=== PATIENT | female | born 1995 | race Two or more races ===

== ENCOUNTER 2021-08-27 12:54 | Emergency (ER) | payer OTHER ==
[~2021-08-27] VITALS: Ht 157.5 cm; Wt 54.4 kg
[2021-08-27] MEDS ORDERED: PRENA1 TRUE CO1 EACH PO (13:19)
== END 2021-08-27 17:55 | disposition home or self-care (01) ==
LOC: ER 12:54
DX: O20.9 Hemorrhage in early pregnancy, unspecified (principal); Z3A.08 8 weeks gestation of pregnancy; Z88.6 Allergy status to analgesic agent

== ENCOUNTER 2021-08-30 23:14 | Emergency (ER) | payer OTHER ==
[~2021-08-30] VITALS: Ht 157.5 cm; Wt 54.4 kg
[~2021-08-30 23:14] MED LIST: PRENA1 TRUE CO1 EACH PO
== END 2021-08-31 10:31 | disposition home or self-care (01) ==
LOC: ER 23:14
DX: O20.9 Hemorrhage in early pregnancy, unspecified (principal); Z88.6 Allergy status to analgesic agent